=== PATIENT | female | born 1950 | race Two or more races ===

== ENCOUNTER 2021-02-24 11:42 | Outpatient (CLI) | payer OTHER | END 2021-02-24 11:48 | disposition home or self-care (01) | LOC: RX STUDY 11:42 | PROVIDERS: ATTEND General Practice | DX: K22.8 Other specified diseases of esophagus (principal); R13.14 Dysphagia, pharyngoesophageal phase ==

== ENCOUNTER 2023-05-04 08:30 | Inpatient (IN) | payer OTHER ==
[~2023-05-04] VITALS: Ht 157.5 cm; Wt 67.1 kg
[~2023-05-04 08:30] MED LIST: IRBESARTAN75 MG PO; LASIX PO
[2023-05-04 10:47] LABS: PH,URINE 6.5 (5.0-8.0); URINE APPEARANCE Clear; URINE BILIRRUBIN Negative (NEGATIVE); URINE BLOOD Negative; URINE COLOR Yellow; URINE GLUCOSE Negative (NEGATIVE); URINE LEUKOCYTE Negative; URINE NITRATE Negative; URINE PROTEIN Negative (NEGATIVE); URINE UROBILINOGEN 0.2 E.U./dl
[2023-05-04 10:48] LABS: URINE BACTERIA 46.5 uL (0.0-1933); URINE RBC 3.3 uL (0.0-20.8); URINE WBC 5.7 uL (0.0-23.2)
[2023-05-04 10:56] LABS: HEMATOCRIT 40.1 % (36.0-45.00); HEMOGLOBIN 12.8 g/dL (12.0-15.00); MEAN CELL VOLUME 71.2 fL (80.00-100.00); MEAN CORPUSCULAR HEMOGLOBIN 22.7 pg (27.00-32.0); MEAN CORPUSCULAR HGB CONC 31.8 g/dl (32.0-36.0); PLATELET COUNT 189 K/uL (150-450); RED BLOOD COUNT 5.64 M/uL (4.00-6.00); RED CELL DISTRIBUTION WIDTH 16.9 % (11.5-14.5)
[2023-05-04 11:18] LABS: INR 1.01; PARTIAL THROMBOPLASTIN TIME 25.1 SECONDS (22.0-34.0); PROTHROMBIN TIME 10.6 SECONDS (9.0-11.5)
[2023-05-04 11:29] LABS: ALBUMIN 3.7 gm/dL (3.4-5.0); BILIRUBIN TOTAL 0.91 mg/dL (0.3-1.2); CALCIUM 9.3 mg/dL (8.5-10.1); CREATININE SERUM 0.86 mg/dL (0.55-1.02); GFR 65.05; GLOBULINA 3.3 G/DL (2.4-3.5); POTASSIUM 4.07 mEq/L (3.5-5.1); T4 TOTAL 7.93 UG/DL (4.8-13.9); TSH 1.97 uIU/mL (0.358-3.74)
[2023-05-08] MEDS ORDERED: MEDROLPACK PO (12:52)
[2023-05-08] MEDS ORDERED: COLACE100 MG PO (12:52)
[2023-05-08] MEDS ORDERED: PERCOCET 5-3251 EACH PO (12:52)
[2023-05-08] MEDS ORDERED: ZOFRAN8 MG PO (12:52)
[2023-05-08 18:42] LABS: ABG PH 7.459 (7.35-7.45); ABG PO2 282.9 mmHg (80-100); ABG pCO2 36.4 mmHg (35-45); BASE EXCESS 1.7 mmol/l; BICARBONATE 25.2 mmol/l (23-25); SaO2 99.9 %; Tco2 26.3 mmol/l
[2023-05-08 18:43] LABS: allen test SATISFACTORY; o2 100 %; puncture site RADIAL RIGHT
[2023-05-08 18:43] LABS: ABG PH 7.491 (7.35-7.45); ABG pCO2 33.5 mmHg (35-45)
[2023-05-08 18:44] LABS: BASE EXCESS 2.3 mmol/l; SaO2 99.9 %
[2023-05-08 18:45] LABS: allen test SATISFACTORY; o2 100 %; puncture site RADIAL RIGHT
== END 2023-05-10 15:50 | disposition home or self-care (01) | DRG 473 ==
LOC: O/R 05-08 06:15 → SURH 05-08 06:15 → PED 05-09 05:01 → SURH 05-09 07:54
PROVIDERS: Anesthesiology; ADMIT Orthopaedic Surgery Orthopaedic Surgery of the Spine; ATTEND Orthopaedic Surgery Orthopaedic Surgery of the Spine
PROC: 0RT30ZZ Resection of Cervical Vertebral Disc, Open Approach (ICD-10-PCS; 2023-05-08)
PROC: 07DS0ZZ Extraction of Vertebral Bone Marrow, Open Approach (ICD-10-PCS; 2023-05-08)
PROC: 0PB30ZZ Excision of Cervical Vertebra, Open Approach (ICD-10-PCS; 2023-05-08)
PROC: 4A11X4G Monitoring of Peripheral Nervous Electrical Activity, Intraoperative, External Approach (ICD-10-PCS; 2023-05-08)
PROC: 0RG20A0 Fusion of 2 or more Cervical Vertebral Joints with Interbody Fusion Device, Anterior Approach, Anterior Column, Open Approach (ICD-10-PCS; principal; 2023-05-08 11:45)
PROC: 3E0F7GC Introduction of Other Therapeutic Substance into Respiratory Tract, Via Natural or Artificial Opening (ICD-10-PCS; 2023-05-09)
PROC: 4A12X4Z Monitoring of Cardiac Electrical Activity, External Approach (ICD-10-PCS; 2023-05-09)
DX: M50.023 Cervical disc disorder at C6-C7 level with myelopathy (principal); M50.021 Cervical disc disorder at C4-C5 level with myelopathy; M50.022 Cervical disc disorder at C5-C6 level with myelopathy; I10 Essential (primary) hypertension